=== PATIENT | female | born 1960 | race Caucasian/White ===

== ENCOUNTER 2020-05-18 03:38 | Outpatient (CLI) | payer BC, SELFPAY ==
--- NOTE | 2020-05-18 06:30 | DI.MAMMO_ITS ---
EXAM: MAMMO SCREENING CLINICAL HISTORY: screening,Z12.39 TECHNIQUE: Mammograms were interpreted according to the usual protocol including computer analysis w [employer] CAD system, tomosynthesis and C-view imaging. COMPARISON: FINDINGS: The breasts are of moderate density with fairly symmetrical distribution of fibroglandular tissue. N o dominant mass or clumped microcalcification is identified in either breast. The current examinatio n is compared with previous examinations including February 2013 and there has been no gross interval change in appearance in comparison with the prior studies. IMPRESSION: No specific evidence of malignancy at this time. Routine screening examinations are suggested yearly intervals in this age group according to the ACS ACR guidelines. BI-RADS Category 1 - Negative Breast Density - Category B - Scattered areas of fibroglandular density
== END 2020-05-18 03:58 ==
DX: Z12.31 Encounter for screening mammogram for malignant neoplasm of breast (principal)
CPT/HCPCS: 77063; 77067

== ENCOUNTER 2024-04-25 15:33 | Outpatient (REF) | payer BC, SELFPAY ==
[2024-04-25 22:01] LABS: ALT 37 U/L (14-59); AST 24 U/L (15-37); Alkaline Phosphatase 74 U/L (46-116); BUN 16 mg/dL (7-18); Bilirubin, Total 0.4 mg/dL (0.2-1.0); CREATININE 0.6 mg/dL (0.55-1.02); Calcium 9.4 mg/dL (8.5-10.1); Chloride 104 mmol/L (98-107); Estimated GFR 100.17 (mL/min/1.73m2); Glucose 92 mg/dL (74-106); Potassium 4.5 mmol/L (3.5-5.1); Sodium 142 mmol/L (136-145); Total Protein 6.7 g/dL (6.4-8.2)
[2024-04-25 22:42] LABS: Calculated LDL 123 mg/dL (<100); Cholesterol 221 mg/dL (<200); HDL Cholesterol 59 mg/dL (>or=50); Triglyceride 198 mg/dL (<150)
== END 2024-04-25 15:34 | disposition home or self-care (01) ==
LOC: NCHCN 15:33
PROVIDERS: PCP Nurse Practitioner Family; Visit Provider Nurse Practitioner Family
DX: M25.561 Pain in right knee (principal); Z13.220 Encounter for screening for lipoid disorders; I10 Essential (primary) hypertension
CPT/HCPCS: 80053; 80061; 82043; 82570; 84550

== ENCOUNTER 2024-05-02 00:50 | Outpatient (CLI) | payer BC, SELFPAY ==
--- NOTE | 2024-05-02 07:30 | DI.RAD_ITS ---
Exam(s) XR KNEE RT 3V AP,LAT,AUREA EXAM: XR KNEE RT 3V AP,LAT,AUREA CLINICAL HISTORY: no trauma,rt knee pain,m25.561. TECHNIQUE: 2D digital imaging was performed of the right knee. Four views obtained. AP, lateral and PA tunnel views were obtained. COMPARISON: No exams were available for comparison FINDINGS: BONES: No acute fracture is present. No bony destructive lesion is seen. JOINTS: There are mild degenerative changes seen at the patellofemoral joint with osteophytes seen po steriorly on the patella. The femoral tibial joints are well maintained. No joint effusion is seen. SOFT TISSUE: Normal. IMPRESSION: Minimal degenerative changes seen at the patellofemoral joint. DATA REPOSITORY: RADIATION DOSE DELIVERED:
== END 2024-05-02 01:10 ==
PROVIDERS: PCP Nurse Practitioner Family; Visit Provider Nurse Practitioner Family
DX: M25.561 Pain in right knee (principal)
CPT/HCPCS: 73562

== ENCOUNTER 2024-06-23 13:17 | Outpatient (REF) | payer MEDICARE, SELFPAY ==
--- NOTE | 2024-06-23 10:30 | PAPFT_PTH ---
PATIENT: Corrine Goodman LOC: [facility] #:[id number] AGE/SX: 64/F ROOM: RE06/23/[address]: Manpreet Ac DNP : 1960 BED: DIS: 06/23/2024 SPEC #: [id number] RECD: 06/23/24 13:18 STATUS: ERIC REQ #: [id number] BEL: 06/23/24 10:[address]: Manpreet Barrera DEPT: [facility] Cytology RECD BY: Brittany Danielson Tissues: 1 - CX/ENDOCX FOR PAP SMEARS Procedures: PAP THIN PREP/[facility] Screening HPV DNA PROBE Comments: [id number] (HPV 16 & 18/45)
[2024-06-23 15:54] LABS: Anion Gap 8.9 mmol/L (3-11); BUN 19 mg/dL (7-18); CO2 28.1 mmol/L (21.0-32.0); CREATININE 0.7 mg/dL (0.55-1.02); Chloride 103 mmol/L (98-107); Estimated GFR 95.92 (mL/min/1.73m2); Glucose 94 mg/dL (74-106); Potassium 4.6 mmol/L (3.5-5.1); Sodium 140 mmol/L (136-145)
== END 2024-06-23 13:18 | disposition home or self-care (01) ==
LOC: LBN 13:17
PROVIDERS: PCP Nurse Practitioner Family; Visit Provider Nurse Practitioner Family
DX: Z12.4 Encounter for screening for malignant neoplasm of cervix (principal); I10 Essential (primary) hypertension
CPT/HCPCS: 80048; 88142; 87624

== ENCOUNTER 2024-09-06 01:34 | Outpatient (CLI) | payer MEDICARE, SELFPAY ==
--- NOTE | 2024-09-06 07:45 | DI.MAMMO_ITS ---
Exam(s) MAMMO SCREENING EXAM: MAMMO SCREENING CLINICAL HISTORY: screening,Z12.39 TECHNIQUE: Bilateral full field digital CC and MLO mammographic images were obtained with 3D tomosynthesis and utilizing computer aided detection (CAD). COMPARISON: Comparison is made with prior examinations. FINDINGS: Masses/Architectural Distortion: No suspicious masses or areas of architectural distortion are present. Microcalcifications: No suspicious pleomorphic-type are seen. Skin Thickening/Nipple Retraction: None. IMPRESSION: 1. No significant interval change with no specific features of malignancy noted. 2. Unless there is more urgent need, screening mammography is recommended, as per [employer] guidelines. BI-RADS Category 1 - Negative Breast Density - Category B - There are scattered areas of fibroglandular density. Breast density Category C or D implies that the patient has dense breast tissue. Dense breast tissue can make it harder to find cancer on a mammogram. Dense breast tissue is also associated with an increased risk of breast cancer. This information about the result of the mammogram report was provided to the patient to raise their awareness. Use this report when you speak with the patient about their risks for breast cancer, which includes their family history. At that time, you may recommend additional screening tests (Ultrasound or MRI) as these tests may add significant information. A negative radiographic report should not delay biopsy if a dominant or clinically suspicious mass is present. Up to ten percent of cancers are not identified on mammography. A negative report may reinforce clinical impression. Adenosis and dense breasts may obscure an underlying neoplasm. False positive reports average 6 to 10%. Patient will receive a letter notifying them of these results.
== END 2024-09-06 01:54 ==
LOC: DI 01:35
PROVIDERS: PCP Nurse Practitioner Family; Visit Provider Nurse Practitioner Family
DX: Z12.31 Encounter for screening mammogram for malignant neoplasm of breast (principal); R92.323 Mammographic fibroglandular density, bilateral breasts
CPT/HCPCS: 77063; 77067